=== PATIENT | female | born 1970 | race Caucasian/White ===

== ENCOUNTER 2021-09-28 00:49 | Day surgery (SDC) | payer OTHER, SELFPAY ==
[2021-09-21 14:43] VITALS: BMI 22.2
--- NOTE | 2021-09-21 14:52 | PC.NURSE ---
Report to the Outpatient Waiting Room, entrance under the green pavilion located off [facility], at time 1045 on date 09/28/21. OR Time: 1245. - You and your visitor will be asked a series of questions to screen for COVID 19 for your protection. - Only one visitor is allowed at this time. - The patient visitor is requested to leave or wait in car when not with patient. - A mask is required within the hospital. Patients may have clear liquids (water, carbonated beverages, clear teas, apple juice) until 3 hours prior to surgery with a maximum of 20 ounces. - No food from midnight until time of surgery Take the following medications with a SIP of water the morning of surgery: LEXAPRO Medications to discontinue per physician: VITAMINS/SUPPLEMENTS Date to take last dose: 09/24/21 Please no make-up, nail kyrgyz, hairspray, perfume, deodorant, or body powder the day of surgery. No jewelry (including any body piercings) or valuables the day of surgery, leave them at home. Please take a shower or bath the night before, or the morning of, surgery with an antibacterial soap. Wear comfortable, loose fitting clothing. - Jewelry must be removed prior to entering the operating room. Rings and piercings that are not removed may be cut off. - The hospital will not accept responsibility for valuables. - Please leave all valuables, including medications, at home the day of surgery. If you are going home after surgery, a licensed dedicated intermodal truck driver must drive you home. - NO public transportation without another adult. - We recommend that an adult stay with you for 24 hours following discharge. - We also recommend that you do not drive, make important decision, drink alcoholic beverages, or take any drugs that were not prescribed by your health care provider for at least 24 hours after your discharge time. Follow any additional instructions given to you from your surgeon. If you or anyone in your household have experienced Covid symptoms in the past week, please notify your surgeon or the nurse liaison at the phone number below for possible testing. Telephone instructions given to PT - JANNY RICKS and asked if any additional questions and then verbalized understanding. Patient advised to call surgeon office or pre surgery nurse liaison [phone] if any additional questions.
--- NOTE | 2021-09-28 07:11 | WPDHPUPDATE1 ---
History and Physical Update Update Date/Time: 09/28/21 07:11 History and Physical has been reviewed, including an updated exam of the patient. There are NO changes in the patient's condition. Risks, benefits, and alternatives have been discussed and questions answered. Patient agrees to proceed with procedure.
--- NOTE | 2021-09-28 07:11 | PM.HPGS ---
History of Present Illness History of Present Illness Consent: Risks, benefits, and alternatives have been discussed and questions answered. Patient agrees to proceed with procedure. Chief complaint: Menorrhagia Narrative: Kiesha Painter is a 50 year old female with menorrhagia. Patient with heavy flooding and clotting followed by prolonged spotting with each cycle. She has also had skipping up to 3 months at a time on her cycles. Patient was given Lysteda to decrease bleeding which was minimally successful. It was recommended to proceed with D&C hysteroscopy. Patient had previously had an attempted hysteroscopy that was unsuccessful. Patient has been given 1 week of Cytotec prior to the procedure to help enter the cervical cavity. Risks of infection, bleeding, perforation, and inability to enter the cavity were reviewed. Patient is aware if we are still unable to enter the cavity the plan would be to be referred to [facility] for further evaluation. Pelvic ultrasound revealed a fibroid uterus and thickened endometrial lining. In addition the patient had a moderately large amount of free fluid in the cul-de-sac therefore a CT scan was performed to attend the 2 and the pelvic fluid was considered small. Was started on Ortho-Novum in July to control bleeding prior to the procedure. She has been taking this continuously. 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 Endometriosis Surgical History Surgical History (Updated 09/28/21 @ 08:46 by Latrice Benavides MD) History of section, low transverse History of cone biopsy of cervix History of hysteroscopy 2012 failed hysteroscopy due to cervical stenosis Status post laparoscopy X3 for endometriosis Social History Social History Smoking status: Never smoker Alcohol intake: never Substance use: never Substance use type: does not use Living arrangements: with family Spiritual care concerns: No Meds Home Medications and Allergies Home Medications Medication Instructions Recorded Confirmed Type escitalopram oxalate 10 mg tablet 10 mg PO DAILY 09/21/21 09/21/21 History (Lexapro) ferrous sulfate 325 mg (65 mg 325 mg PO DAILY 09/21/21 09/21/21 History iron) tablet (Iron (ferrous sulfate)) multivitamin 1 tablet PO DAILY 09/21/21 09/21/21 History norethindrone 1 mg-ethinyl 1 tablet PO DAILY 09/21/21 09/21/21 History estradiol 35 mcg tablet (Nortrel) Allergies Allergy/AdvReac Type Severity Reaction Status Date / Time No Known Allergies Allergy Verified 09/21/21 14:41 Exam Const: General: healthy appearing and alert Orientation/consciousness: patient oriented x3 GI: GI Palp: Yes Soft to palpation, No Tenderness to palpation present (GI) and No Palpable mass present : External Female Exam: normal external appearance Speculum Exam - Vagina: normal appearance of the vagina and normal vaginal discharge Speculum Exam - Cervix: normal appearance of the cervix Bimanual exam- vagina & uterus: uterine size normal and consistency normal Bimanual Exam- Adnexa, other: normal adnexae and No adnexal tenderness Neuro: General: patient oriented x3 Assessment and Plan Assessment and plan (1) Menorrhagia: Code(s): N92.0 - Excessive and frequent menstruation with regular cycle Status: Acute Assessment and Plan: Plan is to proceed with D&C hysteroscopy (2) Cervical stenosis (uterine cervix): Code(s): N88.2 - Stricture and stenosis of cervix uteri Status: Acute Assessment and Plan: Patient has received 1 week of Cytotec 1000mcg q.h.s.
[2021-09-28] MEDS: ACETAMINOPHEN 500 MG TABLET 1000 MG PO (10:46)
--- NOTE | 2021-09-28 10:52 | WPDANESEPPF ---
Anes - Initial Pre Proc Eval Procedure: Operation Date: 09/28/21 12:45 Proposed Procedures p Hysteroscopy with Dilation and Curettage - Latrice Benavides MD Date/Time: 09/28/21 10:52 Surgeon: Latrice Benavides MD Pre Op Diagnosis: Menorrhagia Patient Data Age: 50 Gender: F Height: 1.78 m Weight: 68.3 kg Allergies Allergy/AdvReac Type Severity Reaction Status Date / Time No Known Allergies Allergy Verified 09/28/21 10:29 Home Medications Medication Instructions Recorded Confirmed Type escitalopram oxalate 10 mg tablet 10 mg PO DAILY 09/21/21 09/28/21 History (Lexapro) ferrous sulfate 325 mg (65 mg 325 mg PO DAILY 09/21/21 09/28/21 History iron) tablet (Iron (ferrous sulfate)) multivitamin 1 tablet PO DAILY 09/21/21 09/28/21 History norethindrone 1 mg-ethinyl 1 tablet PO DAILY 09/21/21 09/28/21 History estradiol 35 mcg tablet (Nortrel) Patient hx anesthesia problems: none Family hx anesthesia problems: none Results Review: All pre-operative results and documents have been reviewed as part of the pre-operative evaluation. 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 Endometriosis Surgical History Surgical History (Updated 09/28/21 @ 08:46 by Latrice Benavides MD) History of section, low transverse History of cone biopsy of cervix History of hysteroscopy 2013 failed hysteroscopy due to cervical stenosis Status post laparoscopy X3 for endometriosis Social History Social History Smoking status: Never smoker Alcohol intake: never Substance use: never Substance use type: does not use Living arrangements: with family Spiritual care concerns: No Anes - Eval Final PreProcedure Day of Procedure 09/28/21 10:52 Patient weight: normal Heart: regular rate and rhythm Lungs: clear to auscultation Airway: Mallampati scale class II Neurological: alert and oriented Last oral intake: >/= 8 hours ASA classification: II Emergent: no Anesthetic plan: proceed Anesthesia type and monitoring: general GIVS and standard monitoring Results Review: All pre-operative results and documents have been reviewed as part of the pre-operative evaluation. Informed Consent: The patient's anesthetic plan and its attendant risks and benefits were discussed with the patient/family/POA. Questions were solicited and answers provided to the satisfaction of the patient/family/POA.
[2021-09-28 11:03] LABS: Hematocrit 37.5 % (37.0-47.0); Hemoglobin 12.3 g/dL (12.0-15.0)
[2021-09-28] MEDS: LACTATED RINGERS 1,000 ML 30 ML IV CONT (11:20)
[2021-09-28 11:21] VITALS: BP 113/65; PULSE 75; RESP 16; TEMP 37.7; O2SAT 100
--- NOTE | 2021-09-28 12:35 | SUR.PREOP ---
SPOKE WITH PT , INFORMED OF BEING DONE BEFORE HER SURGERY, PT DENIES NEEDS.
--- NOTE | 2021-09-28 15:04 | W.PM.PROC2 ---
Procedure Note - Detailed Date of Procedure 09/28/21 Pre-op Diagnosis Menorrhagia Post-op Diagnosis Same Procedure Performed D&C hysteroscopy with MyoSure resection Surgeon Latrice Benavides MD Anesthesia MAC and Local Findings Cervix is flushed with the vagina. Uterus sounds to 10cm. There are multiple polypoid masses throughout the entire cavity. Description of Procedure The patient was taken to the operating room and placed under anesthesia in the dorsal lithotomy position. She was prepped and draped in the usual sterile fashion. The bivalve speculum was placed in the vagina and the cervix grasped on the anterior lip with a tenaculum. The uterine sound is placed and the uterus sounds to 10cm. The sound is removed and the cervix is injected in each quadrant with 1% lidocaine. The cervix is then serially dilated to an 8 Hegar. The diagnostic hysteroscope was placed with the above-stated findings. The MyoSure device is opened and placed. The multiple polypoid lesions are excised until the uterine cavity is smooth. The hysteroscope was removed and the sharp curette used to curette the endometrium until a good uterine cry was noted in all areas. The instruments are removed and the patient awakened from anesthesia and taken to recovery in stable condition. Sponge, needle, and instrument counts are correct per the OR staff. Estimated Blood Loss 25 Drains No Packing No Pathology Yes (Endometrial shavings and curettings) Complications No immediate complications Condition Stable Disposition PACU
[2021-09-28 15:10] VITALS: BP 108/58; PULSE 77; RESP 12; O2SAT 98
[2021-09-28 15:40] VITALS: BP 116/62; PULSE 68; RESP 16
== END 2021-09-28 15:55 | disposition home or self-care (01) ==
PROVIDERS: Anesthesiology; Visit Provider Obstetrics & Gynecology Gynecology
PROC: 0U5B8ZZ Destruction of Endometrium, Via Natural or Artificial Opening Endoscopic (ICD-10-PCS; CPT 58563; principal; 2021-09-28 12:45)
DX: C54.1 Malignant neoplasm of endometrium (principal); N92.0 Excessive and frequent menstruation with regular cycle; N88.2 Stricture and stenosis of cervix uteri; Z85.41 Personal history of malignant neoplasm of cervix uteri
CPT/HCPCS: 58558; 36415; 85014; 85018; 88305; A9270; J2250; J2405; J2704; J3010; J7030; J7120